=== PATIENT | female | born 1995 | race American Indian/Alaskan Native ===

== ENCOUNTER 2020-05-06 14:07 | Emergency (ER) | payer MEDICAID ==
[2020-05-06] MEDS ORDERED: ACETAMINOPHEN 325 MG TAB PO ONE (15:34)
[2020-05-06] MEDS ORDERED: FAMOTIDINE 20 MG TAB PO ONE (15:34)
[2020-05-06 16:02] VITALS: BP 114/77
--- NOTE | 2020-05-06 16:02 | Emergency Department Report ---
<MARCO A NICOLAS - Last Filed: 05/06/20 19:13> ED Abdominal Pain HPI - General Chief Complaint: Abdominal Pain Stated Complaint: STOMACH PAIN Time Seen by Provider: 05/06/20 15:07 Source: patient, family Mode of arrival: Ambulatory Limitations: No Limitations - History of Present Illness Initial Comments: 25-year-old female presents to the ER today complaining of abdominal pain. Patient states that her symptoms started yesterday. She describes a burning pain located in her epigastric area. She states is been constant since yesterday. Nonradiating. She reports decreased appetite. She denies any nausea or vomiting. She is unable to give any modifying factors. She denies any UTI, vaginal symptoms or bowel changes. She denies any EtOH abuse, NSAID abuse. She states her last menstrual cycle was 04/05/2020, but she took 2 home tests and they were positive. She reports no other symptoms at this time. MD Complaint: abdominal pain -: days(s) (1) Location: epigastric Radiation: none Severity scale (0 -10): 6 - Related Data Previous Rx's Medication Instructions Recorded Last Taken Type Docusate Sodium [Colace] 100 mg PO BID #60 capsule 07/01/19 Unknown Rx HYDROcodone/APAP 5-325 [[place] 1 each PO Q6HR PRN #15 tablet 07/01/19 Unknown Rx 5/325] Ibuprofen [Motrin] 800 mg PO Q8HR PRN #40 tablet 07/01/19 Unknown Rx Acetaminophen [Tylenol] 500 mg PO Q6HR PRN #30 tablet 05/06/20 Unknown Rx Famotidine [Pepcid] 10 mg PO Q12H #60 tablet 05/06/20 Unknown Rx Allergies Allergy/AdvReac Type Severity Reaction Status Date / Time seafood AdvReac Severe Anaphylaxis Uncoded 06/30/19 14:01 ED Review of Systems Comment: All other systems reviewed and negative Constitutional: denies: chills, fever Respiratory: denies: cough, shortness of breath, wheezing Cardiovascular: denies: chest pain, palpitations Gastrointestinal: abdominal pain. denies: nausea, vomiting, diarrhea, constipation, hematemesis, melena, hematochezia Genitourinary: denies: urgency, dysuria, discharge Musculoskeletal: denies: back pain, joint swelling, arthralgia Skin: denies: rash, lesions Neurological: denies: headache, weakness, paresthesias ED Past Medical Hx - Past Medical History Previous Medical History?: Yes Hx Hypertension: No Hx Congestive Heart Failure: No Hx Diabetes: No Hx Deep Vein Thrombosis: No Hx Renal Disease: No Hx Sickle Cell Disease: No Hx Seizures: No Hx Asthma: Yes (last attack as a child) Hx COPD: No - Surgical History Past Surgical History?: No - Social History Smoking Status: Never Smoker Substance Use Type: None - Medications Home Medications: Home Medications Medication Instructions Recorded Confirmed Last Taken Type Docusate Sodium [Colace] 100 mg PO BID #60 capsule 07/01/19 Unknown Rx HYDROcodone/APAP 5-325 [[place] 1 each PO Q6HR PRN #15 tablet 07/01/19 Unknown Rx 5/325] Ibuprofen [Motrin] 800 mg PO Q8HR PRN #40 tablet 07/01/19 Unknown Rx Acetaminophen [Tylenol] 500 mg PO Q6HR PRN #30 tablet 05/06/20 Unknown Rx Famotidine [Pepcid] 10 mg PO Q12H #60 tablet 05/06/20 Unknown Rx ED Physical Exam - General Limitations: No Limitations General appearance: alert - Head Head exam: Present: atraumatic, normocephalic, normal inspection - Eye Eye exam: Present: normal appearance, PERRL, EOMI Pupils: Present: normal accommodation - ENT ENT exam: Present: normal exam, normal orophraynx, mucous membranes moist - Respiratory Respiratory exam: Present: normal lung sounds bilaterally. Absent: respiratory distress - Cardiovascular Cardiovascular Exam: Present: regular rate, normal rhythm, normal heart sounds - GI/Abdominal GI/Abdominal exam: Present: tenderness (mild ttp epigastric and LUQ abd area. No guarding or rebound. No rigidity or distension.) - Extremities Exam Extremities exam: Present: normal inspection - Neurological Exam Neurological exam: Present: alert, oriented X3, CN II-XII intact - Psychiatric Psychiatric exam: Present: normal affect, normal mood - Skin Skin exam: Present: intact ED Medical Decision Making - Lab Data Result diagrams: 05/06/20 15:47 05/06/20 15:47 - Radiology Data Radiology results: report reviewed - Medical Decision Making Pt presented to ED c/o epigastric pain and concern for 1744 -- Pt currently resting comfortable, She reports improvement of her pain after pepcid and tylenol. Informed her of Positive test and that we will get US and quant HCG. 1917 -- Labs reviewed, OB US results pending. Pt still currently resting comfortable. Her pain is still better. Repeat abd exam unremarkable. She has non surgical exam. Case turned over to Orlando oGnzales -- She will monitor results of US/UA and dispo patient. ED Disposition Clinical Impression: Acute epigastric pain, Early stage of GERD (gastroesophageal reflux disease) Qualifiers: Esophagitis presence: without esophagitis Qualified Code(s): K21.9 - Gastro- esophageal reflux disease without esophagitis Ectopic without intrauterine Qualifiers: Location of ectopic : unspecified location Qualified Code(s): O00.90 - Unspecified ectopic without intrauterine Disposition: TO HOME OR SELFCARE Condition: Stable Instructions: Abdominal Pain (ED), Gastroesophageal Reflux Disease (ED), Ectopic (ED) Additional Instructions: Maintain a complete pelvic rest, with no physical or strenuous or sexual activities. Take Tylenol as needed for pain. Return to the ED or to your [facility] physician in 48 hours for serial hCG quant test to rule out ectopic . Otherwise return to the ED immediately if symptoms get worse. Prescriptions: Acetaminophen [Tylenol] 500 mg PO Q6HR PRN #30 tablet PRN Reason: Pain , Severe (7-10) Famotidine [Pepcid] 10 mg PO Q12H #60 tablet Referrals: PHAM HUYNH MD [Staff Physician] - 2-3 Days Print Language: KAZAKH <PATRICIA OCONNOR - Last Filed: 05/06/20 23:03> ED Review of Systems ROS: Stated complaint: STOMACH PAIN Other details as noted in HPI ED Course Vital Signs 05/06/20 05/06/20 05/06/20 15:44 15:59 16:44 Temperature 99.3 F Pulse Rate 96 H Respiratory 18 18 18 Rate Blood Pressure 114/77 [Right] O2 Sat by Pulse 99 Oximetry ED Medical Decision Making - Lab Data Result diagrams: 05/06/20 15:47 05/06/20 15:47 - Radiology Data Radiology results: report reviewed, image reviewed Findings [facility] [address] [place] [address] Ultrasound Report Signed Patient: DANISH STOUT MR#: [id number] : 1995 Acct:[id number] Age/Sex: 25 / F ADM Date: 05/06/20 Loc: ED Attending Dr: Ordering Physician: MARCO A NICOLAS Date of Service: 05/06/20 Procedure(s): US OB transvaginal Accession Number(s): [id number] cc: MARCO A NICOLAS ULTRASOUND OBSTETRIC INDICATION / CLINICAL INFORMATION: abdominal pain/. Clinical Gestational Age (GA): 4.3 weeks.days TECHNIQUE: Transvaginal. COMPARISON: None available. FINDINGS: GESTATIONAL SAC: No intrauterine gestational sac is identified. YOLK SAC: No yolk sac is identified. EMBRYO/FETUS: No embryo/fetus is identified. UTERUS: The uterus measures 9.2 x 4.6 x 5.1 cm and demonstrates thickening of the endometrial stripe, measuring up to 2.3 cm. ADNEXA: The right ovary measures 6.7 x 4.5 x 4.2 cm and demonstrates a 2.7 cm mixed cystic and solid region with increased vascular flow. The left ovary measures 4.3 x 4.3 x 2.7 cm and is normal in echogenicity. FREE FLUID: None. ADDITIONAL FINDINGS: None. IMPRESSION: 1. No intrauterine gestation is identified. There is thickening of the endometrium which could represent blood products. Findings could represent normal early gestation or potential demise, although ectopic gestation is not excluded. Correlation with beta hCG levels and [facility] consultation are recommended. 2. Mixed solid and cystic mass within the right ovary with hyperemia is nonspecific. An ectopic ovarian is not completely excluded. Signer Name: Jodie Ramos MD Signed: 05/06/2020 9:50 PM Workstation Name: [id number] Transcribed By: SS Dictated By: JODIE RAMOS Electronically Authenticated By: JODIE RAMOS Signed Date/Time: 05/06/202149 DD/ 44 TD/TT: - Medical Decision Making I assumed care of the patient from Ms. Orlando Roldan PA-C at shift change at 2200 hrs. The patient has been initially evaluated by Ms. Darleen Lam PA-C earlier and handed over to Ms. Perry. Patient had presented to the ED with epigastric pain for 2 days. Patient's labs were drawn and upon review all lab test results were unremarkable but patient's hCG quant was 308.9. The rest of the lab tests are unremarkable. Transvaginal ultrasound showed no intrauterine gestation is identified. There is thickening of the endometrium which could repr esent blood products. Findings could represent normal early gestation or potential demise, although ectopic gestation is not excluded. Correlation with beta hCG levels and [facility] consultation are recommended. It also showed a mixed solid and cystic mass within the right ovary with hyperemia is nonspecific. An ectopic ovarian is not completely excluded. The patient's case was discussed with the [facility] physician on-call Dr. Huynh who advised that the patient be discharged home on pain medications and serial beta hCG tests be scheduled to monitor the patient and to rule out ectopic . She was advised to the patient be placed on bedrest. On reevaluation, patient's pain is well controlled medications after being treated in the ED. Patient was discharged home on bedrest and advised to return to the ED or to the [facility] physician within 48 hours for serial hCG quant studies repeat. Patient was also discharged home on pain medications and antacids. - Differential Diagnosis Ectopic , GERD, ovarian cyst, UTI, appendicitis, pancreatitis Critical care attestation.: If time is entered above; I have spent that time in minutes in the direct care of this critically ill patient, excluding procedure time. ED Disposition Is pt being admited?: No Does the pt Need Aspirin: No Time of Disposition: 23:02
[2020-05-06 16:31] LABS: Basophils % (Auto) 0.8 % (0.0-1.8); Eosinophils % (Auto) 0.3 % (0.0-4.3); Hematocrit 38.9 % (30.3-42.9); Hemoglobin 12.9 gm/dl (10.1-14.3); Lymphocytes # (Auto) 1.6 K/mm3 (1.2-5.4); Lymphocytes % (Auto) 35.5 % (13.4-35.0); Mean Corpuscular HGB Conc 33 % (30-34); Mean Corpuscular Volume 81 fl (79-97); Monocytes # (Auto) 0.4 K/mm3 (0.0-0.8); Monocytes % (Auto) 9.3 % (0.0-7.3); Platelet Count 267 K/mm3 (140-440); Red Blood Count 4.81 M/mm3 (3.65-5.03); Red Cell Distribution Width 14.2 % (13.2-15.2)
[2020-05-06 16:57] LABS: Alanine Aminotransferase 11 units/L (7-56); Albumin 4.8 g/dL (3.9-5); Blood Urea Nitrogen 18 mg/dL (7-17); Calcium 9.5 mg/dL (8.4-10.2); Hemolysis Index 43
[2020-05-06 16:59] LABS: BUN/Creatinine Ratio 26
[2020-05-06 19:40] LABS: Bilirubin,Urine NEG (Negative); Blood,Urine SM (Negative); Color,Urine Yellow (Yellow); Mucus,Urine 3+ /HPF
--- NOTE | 2020-05-06 21:54 | Ultrasound Report ---
ULTRASOUND OBSTETRIC INDICATION / CLINICAL INFORMATION: abdominal pain/. Clinical Gestational Age (GA): 4.3 weeks.days TECHNIQUE: Transvaginal. COMPARISON: None available. FINDINGS: GESTATIONAL SAC: No intrauterine gestational sac is identified. YOLK SAC: No yolk sac is identified. EMBRYO/FETUS: No embryo/fetus is identified. UTERUS: The uterus measures 9.2 x 4.6 x 5.1 cm and demonstrates thickening of the endometrial stripe, measuring up to 2.3 cm. ADNEXA: The right ovary measures 6.7 x 4.5 x 4.2 cm and demonstrates a 2.7 cm mixed cystic and solid region w ith increased vascular flow. The left ovary measures 4.3 x 4.3 x 2.7 cm and is normal in echogenicity. FREE FLUID: None. ADDITIONAL FINDINGS: None. IMPRESSION: 1. No intrauterine gestation is identified. There is thickening of the endometrium which could repres ent blood products. Findings could represent normal early gestation or potential demise, althou gh ectopic gestation is not excluded. Correlation with beta hCG levels and [employer] consultation are re commended. 2. Mixed solid and cystic mass within the right ovary with hyperemia is nonspecific. An ectopic ovari an is not completely excluded. Signer Name: Alex Ramos MD Signed: 05/06/2020 9:50 PM Workstation Name: [email or web address] ([email or web address]
== END 2020-05-06 23:35 | disposition home or self-care (01) ==
LOC: ED 14:07
DX: O00.80 Other ectopic pregnancy without intrauterine pregnancy (principal); K21.9 Gastro-esophageal reflux disease without esophagitis; R10.13 Epigastric pain; J45.909 Unspecified asthma, uncomplicated; Z79.1 Long term (current) use of non-steroidal anti-inflammatories (NSAID); Z79.899 Other long term (current) drug therapy; Z91.013 Allergy to seafood; Z3A.01 Less than 8 weeks gestation of pregnancy
CPT/HCPCS: 36415; 76817; 80053; 81001; 83690; 84702; 84703; 85025